=== PATIENT | male | born 1960 | race Caucasian/White ===

== ENCOUNTER 2017-04-14 13:44 | Emergency (ER) | payer OTHER ==
[~2017-04-14] VITALS: Ht 162.6 cm; Wt 61.7 kg
[2017-04-14 14:40] VITALS: BP 145/78
--- NOTE | 2017-04-14 14:49 | NUR ---
PT AMBULATED TO BED 12.
--- NOTE | 2017-04-14 14:50 | NUR ---
ASSUMED PATIENT CARE, CONCUR WITH TRIAGE. NURSING ASSESSMENT COMPLETED.
[2017-04-14] MEDS ORDERED: KETOROLAC 60 MG/2 ML VIAL IM ONE (15:00)
--- NOTE | 2017-04-14 15:45 | NUR ---
DISPO AND MEDICAL DECISION MAKING, DC HOME WITH INSTRUCTIONS AND PRESCRIPTIONS, UNDERSTOOD BY PATIENT WELL.
[2017-04-14 16:07] VITALS: BP 144/65
== END 2017-04-14 15:45 | disposition home or self-care (01) ==
LOC: MED 13:44
DX: M25.511 Pain in right shoulder (principal); M25.551 Pain in right hip
CPT/HCPCS: 73030; 73502; 96372; 99284; J1885; Q0092

== ENCOUNTER 2017-12-04 18:03 | Emergency (ER) | payer OTHER ==
[~2017-12-04] VITALS: Ht 162.6 cm; Wt 72.6 kg
[2017-12-04 18:11] VITALS: BP 150/104
--- NOTE | 2017-12-04 19:15 | NUR ---
56/M came in w c/o generalized headache and generalized weakness x 3 days. Denies CP/SOB, -stoke sx, N/V/D, visual distubances, falls/injuries. Pt amb with steady gait. Denies PMH
[2017-12-04] MEDS ORDERED: NACL 0.9% 1,000 ML IV ONE (19:20)
--- NOTE | 2017-12-04 20:45 | NUR ---
Patient discharged with v/s stable. Written and verbal after care instructions given and explained. Patient alert, oriented and verbalized understanding of instructions. Ambulatory with steady gait. All questions addressed prior to discharge. ID band removed. Patient advised to follow up with PMD. Rx of MOTRIN given. Patient educated on indication of medication including possible reaction and side effects. Opportunity to ask questions provided and answered. IV removed, catheter intact and site benign. Applied folded 4x4 gauze and tape to stop bleeding.
[2017-12-04 20:57] VITALS: BP 139/85
== END 2017-12-04 20:45 | disposition home or self-care (01) ==
LOC: MED 18:03
DX: R51 Headache (principal); R53.1 Weakness; F17.200 Nicotine dependence, unspecified, uncomplicated
CPT/HCPCS: 81002; 96360; 99283; 99284; J7030

== ENCOUNTER 2018-11-13 20:17 | Inpatient (IN) | payer OTHER ==
[~2018-11-13] VITALS: Ht 162.6 cm; Wt 61.2 kg
[2018-11-13 20:20] VITALS: BP 120/85
--- NOTE | 2018-11-13 20:23 | NUR ---
TO LOBBY A/W BED AMBULATORY
--- NOTE | 2018-11-13 21:19 | NUR ---
PT AMBULATED TO BED #1
--- NOTE | 2018-11-13 21:19 | NUR ---
57M C/O 9/10 RT FLANK PAIN X 1 DAY ASSOCIATED WITH DIARRHEA AND MILD N/V. STATES PAIN IS SHARP AND INCREASED WITH MOVEMENT. STATES DIARRHEA, NONBLOODY. WAS AT [facility] 3 WEEKS AGO WITH DX ACUTE PANCREATITIS.
[2018-11-14 00:03] LABS: BASOPHILS # (AUTO) 0.1 K/uL (0.00-0.22); BASOPHILS % (AUTO) 1.1 % (0.0-2.0); EOSINOPHILS # (AUTO) 0.2 K/uL (0-0.4); EOSINOPHILS % (AUTO) 2.3 % (0.0-4.0); HEMATOCRIT 32.5 % (36-52); HEMOGLOBIN 10.9 g/dL (12.0-18.0); LYMPHOCYTES # (AUTO) 1.2 K/uL (2.0-11.5); LYMPHOCYTES % (AUTO) 16.2 % (20.5-51.1); MEAN CORPUSCULAR HEMOGLOBIN 29 pg (27-31); MEAN CORPUSCULAR HGB CONC 34 g/dL (33-37); MEAN CORPUSCULAR VOLUME 87.6 fL (80-94); MONOCYTES # (AUTO) 0.6 K/uL (0.8-1.0); MONOCYTES % (AUTO) 8.4 % (1.7-9.3); NEUTROPHILS # (AUTO) 5.4 K/uL (1.8-7.7); PLATELET COUNT (AUTO) 361 K/uL (140-450); RED BLOOD CELL COUNT(AUTO) 3.71 MIL/uL (4.20-6.10); RED CELL DISTRIBUTION WIDTH 16.1 % (11.6-13.7); WHITE BLOOD COUNT (AUTO) 7.6 K/uL (4.8-10.8)
[2018-11-14 00:16] LABS: ANION GAP 12.1 (8-16); CARBON DIOXIDE 25.5 mmol/L (21-32); CREATININE 1.2 mg/dL (0.7-1.3); POTASSIUM 3.6 mmol/L (3.5-5.1)
[2018-11-14 00:22] LABS: ALBUMIN 2.8 g/dL (3.4-5.0); TOTAL BILIRUBIN 0.4 mg/dL (0.0-1.0)
--- NOTE | 2018-11-14 01:14 | NUR ---
PT SLEEPING IN BED, AROUSABLE BY VOICE. DENIES PAIN AT THIS TIME.
[2018-11-14] MEDS ORDERED: NACL 0.9% 1,000 ML IV ONE ×3 (01:50→03:20)
[2018-11-14] MEDS ORDERED: HYDR-5122 PO (04:23)
--- NOTE | 2018-11-14 04:50 | NUR ---
Patient will be admitted to care of Dr Shah. Admited to [facility]. Will go to room 111B. Belongings list completed. Report to ESTEVAN Bartlett.
[2018-11-14 05:00] VITALS: BP 122/68
--- NOTE | 2018-11-14 05:00 | NUR ---
RECEIVED PT FROM ER VIA WHEELCHAIR, REPORT GIVEN AT BED SIDE PT LUXEMBOURGISH SPEAKER AAOX4 AMBULATORY IV ON LEFT FA INFUSING WELL IV FLUIDS, IV SITE ON RT FA GAUGE #20 DENIES ANY PAIN AT THIS TIME , SKIN IS INTACT, MRSA SWAB NARES PROTOCOL TAKEN AND SENT TO LAB ,PT IS ORIENTED TO THE FLOOR CALL LIGHT WITHIN REACH, INITIAL ASSESSMENT DONE
[2018-11-14] MEDS ORDERED: ONDANSETRON 4 MG/2 ML VIAL IVP PRN (06:10)
[2018-11-14] MEDS ORDERED: ACETAMINOPHEN 325 MG TAB PO PRN ×2 (06:10→10:00)
[2018-11-14] MEDS ORDERED: MORPHINE SULFATE 4 MG/ML SYR IVP PRN (06:10)
--- NOTE | 2018-11-14 06:12 | NUR ---
DR MARTINEZ GIVE ORDERS AND ORDES TO FO;NILSA, PT NPO FOR NOW . PT WILL BE ENDORSED TO DAY SHIFT NURSE FOR CONTINUE OF CARE
[2018-11-14] MEDS: DEXT 5% /NACL 0.9% 1,000 ML IV SCH ×2 (06:28→16:10)
--- NOTE | 2018-11-14 07:00 | NUR ---
RECEIVED BEDSIDE REPORT FROM SUPERVISOR SLITTING AND SHIPPING NURSE. PATIENT ON MED SURGE FLOOR WITH STANDARD PRECAUTIONS IN PLACE. PATIENT AAOX3, COMMUNICATES APPROPRIATELY, SKIN INTACT, AMBULATORY AND CONTINENT. IV ON L FA 20G INFUSING D5 NS AT 100, IV PATENT AND INTACT. BED IN LOW POSITION, CALL LIGHT WITHIN REACH, SIDE RAILS X2 UP
[2018-11-14 08:00] VITALS: BP 114/71
[2018-11-14 08:20] LABS: BASOPHILS # (AUTO) 0.1 K/uL (0.00-0.22); EOSINOPHILS # (AUTO) 0.1 K/uL (0-0.4); HEMOGLOBIN 10.2 g/dL (12.0-18.0); LYMPHOCYTES # (AUTO) 0.8 K/uL (2.0-11.5); LYMPHOCYTES % (AUTO) 10.8 % (20.5-51.1); MEAN CORPUSCULAR HEMOGLOBIN 29 pg (27-31); MEAN CORPUSCULAR HGB CONC 33 g/dL (33-37); MEAN CORPUSCULAR VOLUME 88.4 fL (80-94); MONOCYTES # (AUTO) 0.7 K/uL (0.8-1.0); MONOCYTES % (AUTO) 9.6 % (1.7-9.3); NEUTROPHILS # (AUTO) 5.5 K/uL (1.8-7.7); NEUTROPHILS % (AUTO) 76.6 % (42.2-75.2); PLATELET COUNT (AUTO) 374 K/uL (140-450); RED BLOOD CELL COUNT(AUTO) 3.51 MIL/uL (4.20-6.10); RED CELL DISTRIBUTION WIDTH 16.2 % (11.6-13.7); WHITE BLOOD COUNT (AUTO) 7.2 K/uL (4.8-10.8)
[2018-11-14 08:36] LABS: ANION GAP 9.7 (8-16); CARBON DIOXIDE 27.7 mmol/L (21-32); CREATININE 1.3 mg/dL (0.7-1.3); POTASSIUM 4.4 mmol/L (3.5-5.1)
--- NOTE | 2018-11-14 08:36 | NUR ---
PATIENT HAS BEEN SCREENED AND CATEGORIZED MODERATE NUTRITION RISK. PATIENT WILL BE SEEN WITHIN 3-5 DAYS OF ADMISSION. 11/16/18KAN [address]
[2018-11-14 08:42] LABS: CHOL/HDL RATIO 1.7 (1-4.5)
--- NOTE | 2018-11-14 09:37 | NUR ---
PATIENT LYING COMFORTABLY IN BED WITH UNLABORED BREATHING ON ROOM AIR
[2018-11-14] MEDS ORDERED: MAG SULF 2000 MG/WATER PREMIX 50 ML IV PRN (10:00)
[2018-11-14] MEDS ORDERED: cloNIDine 0.1 MG TAB PO PRN (10:00)
[2018-11-14] MEDS ORDERED: POTASSIUM CHLORIDE 40 MEQ, LIDOCAINE 1% 25 MG in NACL 0.9% 250 ML IV PRN (10:00)
[2018-11-14] MEDS ORDERED: POTASSIUM CHLORIDE 10 MEQ TABER PO PRN (10:00)
[2018-11-14] MEDS ORDERED: HYDROcodone/APAP 5/325 MG 1 TAB TAB PO PRN ×2 (10:00)
[2018-11-14] MEDS ORDERED: LORazepam 2 MG/ML VIAL IVP PRN (10:00)
[2018-11-14] MEDS ORDERED: ACETAMINOPHEN 650 MG SUPP RC PRN (10:00)
[2018-11-14] MEDS ORDERED: ALBUTEROL 0.083% 2.5 MG/3 ML NEBU INH PRN (10:00)
[2018-11-14] MEDS ORDERED: ALUMINUM HYD/MAG/SIMETHICONE 30 ML UDC PO PRN (10:00)
[2018-11-14] MEDS ORDERED: ZOLPIDEM 5 MG TAB PO PRN (10:00)
[2018-11-14] MEDS ORDERED: DOCUSATE SODIUM 250 MG GELCAP PO PRN (10:00)
[2018-11-14] MEDS ORDERED: MAGNESIUM OXIDE 400 MG TAB PO PRN (10:00)
[2018-11-14] MEDS ORDERED: diphenhydrAMINE 50 MG/ML VIAL IVP PRN (10:00)
[2018-11-14] MEDS ORDERED: SODIUM PHOSPHATE 118 ML ENEM RC PRN (10:00)
[2018-11-14] MEDS ORDERED: IPRATROPIUM 0.02% 0.5 MG/2.5 ML NEBU INH PRN (10:00)
[2018-11-14] MEDS ORDERED: BISACODYL 10 MG SUPP RC PRN (10:00)
--- NOTE | 2018-11-14 11:27 | NUR ---
PATIENT AMBULATED TO RESTROOM WITH NO ASSISTANCE, ON ROOM AIR, NO DISTRESS NOTED.
--- NOTE | 2018-11-14 13:16 | NUR ---
PATIENT AMBULATING AROUND UNIT
[2018-11-14] MEDS: MORPHINE SULFATE 2 MG/ML SYR IVP PRN (15:44)
--- NOTE | 2018-11-14 15:49 | NUR ---
ADMINISTERED PAIN MEDICINE FOR 10/10 ABDOMINAL PAIN ORDERED
[2018-11-14 16:00] VITALS: BP 145/111
--- NOTE | 2018-11-14 17:05 | NUR ---
PATIENT SITTING IN BED COMFORTABLY WATCHING TV, NO COMPLAINTS AT THIS TIME
--- NOTE | 2018-11-14 19:26 | NUR ---
GAVE BEDSIDE REPORT TO CUSTOMER SERVICE ASSISTANT NURSE. PATIENT ENDORSED IN STABLE CONDITION
--- NOTE | 2018-11-14 19:27 | NUR ---
RECEIVED PT FROM MIGUELINA PT JAPANESE SPEAKER AAOX4 AMBULATORY VOIDING WELL, IV ON LEFT FA INFUSING WELL, DENIES ANY PAIN AT THIS TIME INITIAL ASSESSMENT DONE
--- NOTE | 2018-11-14 21:17 | NUR ---
RECEIVED PATIENT ON ROOM AIR, PULSE OX SAT 100%. PATIENT DENIES ANY SHORTNESS OF BREATH. PRN BREATHING TREATMENT NOT INDICATED OR ADMINISTERED AT THIS TIME. NO ACUTE RESPIRATORY DISTRESS NOTED. WILL CONTINUE TO MONITOR.
--- NOTE | 2018-11-14 22:00 | NUR ---
PT ON CLOSE MONITORING DENIES ANY PAIN , VOIDING WELL TOLERATED WELL LIQUID DIET IV ON LEFT FA INFUSING WELL
[2018-11-15] VITALS: BP 140/84
[2018-11-15] MEDS: DEXT 5% /NACL 0.9% 1,000 ML IV SCH (00:48)
--- NOTE | 2018-11-15 00:50 | NUR ---
PT SLEEPING WELL NOT SIGNS OF DISTRESS NOTED
--- NOTE | 2018-11-15 04:00 | NUR ---
PT AMBULATES TO THE RESTROOM VOIDING WELL DENIES ANY PAIN
--- NOTE | 2018-11-15 06:11 | NUR ---
PT WILL BE ENDORSED TO DAY SHIFT NURSED FOR CONTINUE OF CARE
--- NOTE | 2018-11-15 07:10 | NUR ---
PATIENT ALERT AND ORIENTED, MACEDONIAN SPEAKING, UNDERSTANDS LITTLE OCCITAN. ABLE TO VERBALIZE PLAN OF CARE. NO ACUTE DISTRESS NOTED. MILD DISCOMFORT RLQ, WILL MEDICATE ORDERED.
[2018-11-15 08:00] VITALS: BP 140/77
--- NOTE | 2018-11-15 08:44 | NUR ---
CONTACTED PATIENT'S PCP DR. LEENA RIVERA'S OFFICE AT [phone] FOR POST DISCHARGE APPOINTMENT. OFFICE IS STILL CLOSED, WILL FOLLOW UP.
[2018-11-15] MEDS: MORPHINE SULFATE 2 MG/ML SYR IVP PRN (09:52)
--- NOTE | 2018-11-15 10:13 | NUR ---
CONTACTED PCP'S CLINIC AGAIN, ABLE TO SPEAK TO NATI. SHE PROVIDED ME A POST DISCHARGE APPOINTMENT ON NOV 22, 2018 AT 1430. COPY OF APPOINTMENT PROVIDED TO THE PATIENT.
--- NOTE | 2018-11-15 13:30 | NUR ---
PATIENT TO BE DISCHARGED HOME. SPOUSE HERE TO TAKE PATIENT HOME. HOME MEDICATIONS GIVEN BACK TO PATIENT FROM PHARMACY. IV REMOVED, CANULA INTACT. ALERT AND AMBULATORY. DENIES PAIN/DISCOMFORT AT THIS TIME. DISCHARGE INSTRUCTIONS GIVEN WITH FOLLOW UP TEACHING, VERBALIZED UNDERSTANDING. WALKED WITH PATIENT TO FRONT LOBBY.
[2018-11-16] MEDS ORDERED: THIAMINE 100 MG TAB PO SCH (11:00)
[2018-11-17] MEDS ORDERED: THIAMINE 100 MG TAB PO SCH (09:00)
== END 2018-11-15 13:23 | disposition home or self-care (01) | DRG 282 ==
LOC: MED 20:17 → MTU 11-14 04:10
PROVIDERS: ADMIT Internal Medicine Pulmonary Disease; ATTEND Internal Medicine Pulmonary Disease
DX: K85.20 Alcohol induced acute pancreatitis without necrosis or infection (principal); E44.1 Mild protein-calorie malnutrition; E87.1 Hypo-osmolality and hyponatremia; F17.210 Nicotine dependence, cigarettes, uncomplicated; F10.20 Alcohol dependence, uncomplicated; Z68.23 Body mass index [BMI] 23.0-23.9, adult
CPT/HCPCS: 36415; 80048; 80053; 83690; 85025; 87081; 96360; 99285; J2270; J7042

== ENCOUNTER 2019-02-27 09:55 | Emergency (ER) | payer OTHER ==
[~2019-02-27] VITALS: Ht 162.6 cm; Wt 59.0 kg
[~2019-02-27 09:55] MED LIST: HYDR-5122 PO
[2019-02-27 10:15] VITALS: BP 138/85
--- NOTE | 2019-02-27 10:24 | NUR ---
PATIENT AMBULATED TO BED 1.
--- NOTE | 2019-02-27 10:36 | NUR ---
PT PRESENTS TO ED WITH C/O L FOREARM AND L HAND DISCOMFORT X 2 WEEKS. PT DENIES PAIN AT THIS TIME. PT DENIES INJURY TO L FOREARM AND HAND. PT STATES "IT FEELS LIKE IT IS SLEEPING". +CSM. PT SKIN IS PINK, WARM, AND DRY. PT DENIES N/V/D, CP AND SOB AT THIS TIME. VSS. PT POSITIONED FOR COMFORT, HOB ELEVATED, BED RAIL UP X 1. ER MD TO SEE PT. NKA HX: DENIES RX: DENIES
--- NOTE | 2019-02-27 10:46 | NUR ---
PT TO CT VIA WHEELCHAIR.
--- NOTE | 2019-02-27 10:57 | NUR ---
PT RETURNED FROM CT VIA WHEELCHAIR
--- NOTE | 2019-02-27 11:07 | NUR ---
Patient being evaluated by DR. PAYTON at bedside.
--- NOTE | 2019-02-27 11:16 | NUR ---
LAB AT BEDSIDE.
[2019-02-27 11:34] LABS: BASOPHILS # (AUTO) 0.1 K/uL (0.00-0.22); BASOPHILS % (AUTO) 0.9 % (0.0-2.0); EOSINOPHILS # (AUTO) 0.1 K/uL (0-0.4); EOSINOPHILS % (AUTO) 1.3 % (0.0-4.0); HEMATOCRIT 34.2 % (36-52); HEMOGLOBIN 11.1 g/dL (12.0-18.0); LYMPHOCYTES # (AUTO) 1.4 K/uL (2.0-11.5); LYMPHOCYTES % (AUTO) 20.6 % (20.5-51.1); MEAN CORPUSCULAR HEMOGLOBIN 27 pg (27-31); MEAN CORPUSCULAR HGB CONC 33 g/dL (33-37); MEAN CORPUSCULAR VOLUME 82.4 fL (80-94); MONOCYTES # (AUTO) 0.7 K/uL (0.8-1.0); MONOCYTES % (AUTO) 10.2 % (1.7-9.3); NEUTROPHILS # (AUTO) 4.6 K/uL (1.8-7.7); PLATELET COUNT (AUTO) 382 K/uL (140-450); RED BLOOD CELL COUNT(AUTO) 4.14 MIL/uL (4.20-6.10); RED CELL DISTRIBUTION WIDTH 17.9 % (11.6-13.7); WHITE BLOOD COUNT (AUTO) 6.9 K/uL (4.8-10.8)
[2019-02-27 11:44] LABS: ANION GAP 15.2 (8-16); CARBON DIOXIDE 24.9 mmol/L (21-32); CREATININE 1.2 mg/dL (0.7-1.3); POTASSIUM 4.1 mmol/L (3.5-5.1)
--- NOTE | 2019-02-27 11:48 | NUR ---
PT AMBULATED TO THE RESTROOM WITH A STEADY GAIT.
[2019-02-27 11:50] LABS: ALBUMIN 3.2 g/dL (3.4-5.0); TOTAL BILIRUBIN 0.3 mg/dL (0.0-1.0)
--- NOTE | 2019-02-27 12:03 | NUR ---
Patient discharged with v/s stable. Written and verbal after care instructions given and explained. Patient alert, oriented and verbalized understanding of instructions. Ambulatory with steady gait. All questions addressed prior to discharge. ID band removed. Patient advised to follow up with PMD. Rx of BENADRYL given. Patient educated on indication of medication including possible reaction and side effects. Opportunity to ask questions provided and answered.
[2019-02-27 12:04] VITALS: BP 117/77
[2019-02-27 12:16] LABS: CKMB RELATIVE INDEX 0.7 (0.0-2.5); CREATINE KINASE MB 3.5 ng/mL (0-3.6)
== END 2019-02-27 12:03 | disposition home or self-care (01) ==
LOC: MED 09:55
DX: R53.1 Weakness (principal); R03.0 Elevated blood-pressure reading, without diagnosis of hypertension; F17.210 Nicotine dependence, cigarettes, uncomplicated; Z79.899 Other long term (current) drug therapy
CPT/HCPCS: 36415; 70450; 80053; 82550; 82553; 85025; 99284

== ENCOUNTER 2019-12-25 10:35 | Observation (INO) | payer OTHER, SELFPAY ==
[~2019-12-25] VITALS: Ht 167.6 cm; Wt 84.8 kg
[~2019-12-25 10:35] MED LIST changes: +CIPR500T4 PO; +METR250T2 PO
[2019-12-25 10:40] VITALS: BP 136/80
--- NOTE | 2019-12-25 10:54 | NUR ---
PQATIENT AMBULATED TO BED 4.
--- NOTE | 2019-12-25 10:55 | NUR ---
pt hook to manager cardiac cath , o2 sat at 99 , hr 84 .vs stable.
--- NOTE | 2019-12-25 10:56 | NUR ---
C/O INTERMITENT LEFT CHEST PAIN X 1 MONTH. VOMITING X1 THIS AM.PT AOX4 , AFIBRILE , AMBULATORY WITH STEADY GAIT, DENIES SOB AND DIZZINESS , PINK PALPEBRAL CONJUNCTIVA , ANICTERIC SCLERA , SCE , FLAT SOFT ABDOMEN. MED HX: HERNIA REPAIR
--- NOTE | 2019-12-25 10:59 | NUR ---
emt ayala wells ekg
--- NOTE | 2019-12-25 11:20 | NUR ---
dr myers at bedside evaluating pt.
[2019-12-25] MEDS ORDERED: NITROGLYCERIN 0.4 MG TAB SL ONE (11:25)
[2019-12-25] MEDS ORDERED: ASPIRIN 81 MG TAB.CHEW PO ONE (11:25)
--- NOTE | 2019-12-25 11:43 | NUR ---
XRAY AT BEDSIDE
--- NOTE | 2019-12-25 11:44 | NUR ---
LABS AT BEDSIDE
[2019-12-25 12:06] LABS: BASOPHILS % (AUTO) 1.2 % (0.0-2.0); EOSINOPHILS % (AUTO) 0.7 % (0.0-4.0); HEMATOCRIT 28.5 % (36-52); HEMOGLOBIN 9.6 g/dL (12.0-18.0); LYMPHOCYTES # (AUTO) 0.9 K/uL (2.0-11.5); LYMPHOCYTES % (AUTO) 22.1 % (20.5-51.1); MEAN CORPUSCULAR HEMOGLOBIN 29 pg (27-31); MEAN CORPUSCULAR HGB CONC 34 g/dL (33-37); MONOCYTES # (AUTO) 0.4 K/uL (0.8-1.0); MONOCYTES % (AUTO) 11.1 % (1.7-9.3); NEUTROPHILS # (AUTO) 2.6 K/uL (1.8-7.7); NEUTROPHILS % (AUTO) 64.9 % (42.2-75.2); PLATELET COUNT (AUTO) 309 K/uL (140-450); RED BLOOD CELL COUNT(AUTO) 3.27 MIL/uL (4.20-6.10); RED CELL DISTRIBUTION WIDTH 17.6 % (11.6-13.7)
[2019-12-25 12:11] LABS: ALBUMIN 2.8 g/dL (3.4-5.0); ANION GAP 15.4 (8-16); CARBON DIOXIDE 21.9 mmol/L (21-32); CREATININE 1.2 mg/dL (0.6-1.3); POTASSIUM 3.3 mmol/L (3.5-5.1); TOTAL BILIRUBIN 0.3 mg/dL (0.0-1.0)
[2019-12-25] MEDS ORDERED: ACETAMINOPHEN 325 MG TAB PO PRN (13:40)
[2019-12-25] MEDS ORDERED: MORPHINE SULFATE 4 MG/ML SYR IVP PRN (13:40)
[2019-12-25] MEDS ORDERED: ONDANSETRON 4 MG/2 ML VIAL IVP PRN (13:40)
--- NOTE | 2019-12-25 16:50 | NUR ---
pt comfortable in bed with stable vss.
[2019-12-25 18:45] VITALS: BP 140/79
--- NOTE | 2019-12-25 18:45 | NUR ---
RECEIVED REPORT FROM ER NURSE FOR CONTINUITY OF CARE, PT IS STABLE, NO SIGNS OF DISTRESS NOTED, RESPIRATIONS ARE EVEN AND UNLABORED ON ROOM AIR, NO IV ACCESS PER ER NURSE THERE WAS NO IV ORDER. PT AMBULATED INTO HIS BED, ORIENTED PT TO THE ROOM, OBTAIN MRSA SAMPLE, UPDATED WHITEBOARD, INTRODUCE SELF, BED IN LOW POSITION, SAFETY MEASURES IN PLACE
--- NOTE | 2019-12-25 18:45 | NUR ---
Patient will be admitted to care of Dr Sosa. Admited to [facility]. Will go to room 106 A. Belongings list completed. Report to giancarlo zepeda.
--- NOTE | 2019-12-25 19:19 | NUR ---
ENDORSE PT TO NIGHT NURSE FOR CONTINUITY OF CARE, PT IS STABLE.
--- NOTE | 2019-12-25 19:20 | NUR ---
RECEIVED BEDSIDE ENDORSEMENT FROM ESTEVAN HOLT. AAOX4, NO SOB, NO C/O PAIN, NO IV SITE NOTED, SKIN INTACT, MRSA DONE, V/S TAKEN, SAFETY MEASURES IN PLACE, LOW BED IN PLACE, PLAN OF CARE DISCUSSED, CALL LIGHT WITHIN REACH.
[2019-12-25 20:00] VITALS: BP 140/87
[2019-12-25] MEDS: HYDROcodone/APAP 5/325 MG 1 TAB TAB PO PRN (22:20)
--- NOTE | 2019-12-25 22:20 | NUR ---
C/O INTERMITTENT CHEST PAIN, 5/10, REPOSITIONED, NORCO PO GIVEN FOR MODERATE PAIN ORDERED, TOLERATED WELL, MED EDUCATION PROVIDED. WILL MONITOR CLOSELY.
--- NOTE | 2019-12-25 23:20 | NUR ---
PATIENT IS RESTING, DENIES ANY PAIN. CALL LIGHT WITHIN REACH.
[2019-12-26] VITALS: BP 139/87
--- NOTE | 2019-12-26 02:00 | NUR ---
SLEEPING, RESPIRATION EVEN AND UNLABORED. NO DISTRESS.
[2019-12-26 04:00] VITALS: BP 143/87
--- NOTE | 2019-12-26 04:30 | NUR ---
V/S TAKEN AND RECORDED, DENIES PAIN, KEPT COMFORTABLE.
[2019-12-26 06:26] LABS: BASOPHILS # (AUTO) 0.1 K/uL (0.00-0.22); BASOPHILS % (AUTO) 1.2 % (0.0-2.0); EOSINOPHILS # (AUTO) 0.1 K/uL (0-0.4); EOSINOPHILS % (AUTO) 2.9 % (0.0-4.0); HEMATOCRIT 31.9 % (36-52); HEMOGLOBIN 10.6 g/dL (12.0-18.0); LYMPHOCYTES # (AUTO) 0.9 K/uL (2.0-11.5); LYMPHOCYTES % (AUTO) 20.1 % (20.5-51.1); MEAN CORPUSCULAR HEMOGLOBIN 29 pg (27-31); MEAN CORPUSCULAR HGB CONC 33 g/dL (33-37); MEAN CORPUSCULAR VOLUME 88.4 fL (80-94); MONOCYTES # (AUTO) 0.5 K/uL (0.8-1.0); MONOCYTES % (AUTO) 12.2 % (1.7-9.3); NEUTROPHILS # (AUTO) 2.8 K/uL (1.8-7.7); NEUTROPHILS % (AUTO) 63.6 % (42.2-75.2); PLATELET COUNT (AUTO) 306 K/uL (140-450); RED BLOOD CELL COUNT(AUTO) 3.61 MIL/uL (4.20-6.10); RED CELL DISTRIBUTION WIDTH 18.5 % (11.6-13.7); WHITE BLOOD COUNT (AUTO) 4.5 K/uL (4.8-10.8)
[2019-12-26 06:53] LABS: ALBUMIN 2.9 g/dL (3.4-5.0); ANION GAP 12.3 (8-16); CARBON DIOXIDE 26.4 mmol/L (21-32); CREATININE 1.3 mg/dL (0.6-1.3); POTASSIUM 3.7 mmol/L (3.5-5.1); TOTAL BILIRUBIN 0.5 mg/dL (0.0-1.0)
--- NOTE | 2019-12-26 06:59 | NUR ---
PATIENT IS IN STABLE CONDITION. BEDSIDE ENDORSEMENT GIVEN TO AM SHIFT RN FOR CONTINUITY OF CARE.
--- NOTE | 2019-12-26 07:00 | NUR ---
RECEIVED REPORT FROM FRANCIS, ESTEVAN RUDOLPH. PT CAME FROM HOME. SAO TOMEAN/SLOVAK SPEAKING. CO: CHEST PAIN [id number] ON AND OFF. DX: R/O ACS. NO PMHX. NKA. A&O X4. PT IS ON A CARDIAC DIET. PT IS AMBULATORY. SKIN IS INTACT. PLAN: STRICT I&O AND OBSERVATION.
[2019-12-26 08:00] VITALS: BP 146/87
[2019-12-26] MEDS: HYDROcodone/APAP 5/325 MG 1 TAB TAB PO PRN (08:16)
--- NOTE | 2019-12-26 08:30 | NUR ---
GAVE PAIN MEDS GIVEN, PT COMPLAINING OF CHEST PAIN. VS STABLE, HR WITHIN NORMAL RANGE.
[2019-12-26] MEDS ORDERED: ASPIRIN 81 MG TAB.CHEW PO SCH (09:00)
--- NOTE | 2019-12-26 09:00 | NUR ---
CHECKED ON PT, NO COMPLAINTS OF PAIN. MEDICATION TREATMENT WAS SUCCESSFUL.
--- NOTE | 2019-12-26 09:05 | NUR ---
DISCHARGE PLANNING: THIS IS A 59 Y/O MALE PATIENT FROM HOME, WHO CAME IN DUE TO CHEST PAIN. NO SIGNIFICANT PAST MEDICAL HISTORY. INITIAL DIAGNOSIS OF CHEST PAIN, R.O ACS. CURRENT LABS INCLUDE WBC 4.5, H/H 10.6/31.9, NA/K 137/3.7, BUN/CREA 8/1.3, TROP <0.017, ALB 2.9. CXR POSSIBLE LEFT UPPER LOBE GRANULOMA (5 MM). NO CONSULTS YET AT THIS TIME. DC PLAN BACK TO HOME ONCE STABLE. Addendum: 12/26/19 at 1243 by Celine Paula CM DC SEGREGATOR: RECEIVED ORDER FOR GI FOLLOW UP. FAXED ORDER TO [facility] [place] [phone] FAX# [phone].
--- NOTE | 2019-12-26 09:16 | NUR ---
PATIENT HAS BEEN SCREENED AND CATEGORIZED MODERATE NUTRITION RISK. PATIENT WILL BE SEEN WITHIN 3-5 DAYS OF ADMISSION. 12/28/19 12/30/[address]
--- NOTE | 2019-12-26 11:12 | NUR ---
PLASTIC BATTERY ASSEMBLER NOTE: Patient's Orientation Person Situation Place Time Information Provided By PATIENT Comments SW COMPLETED ASSESSMENT TELEPHONICALLY USING [place]ISH INTERPRETOR DASHA [id number]. SW VERIFIED DEMOGRAPHICS WITH PATIENT. PATIENT PROVIDED DIFFERENT PHONE NUMBER FOR RIKI SANFORD - [phone]. Laboratory Manager, Realtionship and Phone Number RIKI SANFORD [phone] Healthcare Power of Floor Coverings Salesperson No Does Patient Have a POLST No Identifying Problems No Social Work Triggers Is A Social Work Consult Needed No Mandate Report Filed No Explanation Of Identifying Problems PATIENT IS A 59-YEAR-OLD MALE ADMITTED FOR CHEST PAIN. PATIENT HAS NO SIGNIFICANT PMHX. PATIENT REPORTED NO HISTORY OF SUBSTANCE ABUSE OR MENTAL HEALTH. Admitted From Home Pre-Admission Level Of Functioning Status Independent/Ambulatory Prior Resources/Services Used In Last 12 Months No Prior Resources Used Prior DME No Prior DME Used Living Situation Lives With Family House Patient Had Caregiver No Home Support No Caregiver Issues Financial Issues No Known Financial Issue Referral To The Financial Counselor Needed No Factors/Needs No D/C Needs Identified Pt/Rep Participated In Discharge Plan Yes Patient/Family Agress With Discharge Plan Yes Discharge Plan Comments TENTATIVE DISCHARGE PLAN IS FOR PATIENT TO RETURN HOME. DC Plan Status Initiated
[2019-12-26 12:00] VITALS: BP 134/84
--- NOTE | 2019-12-26 12:00 | NUR ---
VS STABLE. NO SIGNS OF DISTRESS.
--- NOTE | 2019-12-26 14:00 | NUR ---
RECEIVED DC ORDER. EXPLAINED TO PT THAT HE WILL BE GOING HOME. MEDICATIONS WILL BE AT PREFERRED PHARMACY.
[2019-12-26] MEDS ORDERED: ONDA4TAB PO (14:11)
[2019-12-26] MEDS ORDERED: PANT40EC PO (14:11)
[2019-12-26 14:17] VITALS: BP 134/84
--- NOTE | 2019-12-26 14:30 | NUR ---
GAVE DC INSTRUCTIONS. PT SIGNED ALL DC DOCUMENTS. WRIST BAND REMOVED. ESCORTED PT TO THE LOBBY.
== END 2019-12-26 14:45 | disposition home or self-care (01) ==
LOC: MED 10:35 → MTU 13:39
PROVIDERS: ADMIT Hospitalist; ATTEND Hospitalist
DX: R07.89 Other chest pain (principal); D64.9 Anemia, unspecified; E87.1 Hypo-osmolality and hyponatremia; E87.6 Hypokalemia; N28.9 Disorder of kidney and ureter, unspecified; F17.200 Nicotine dependence, unspecified, uncomplicated
CPT/HCPCS: 36415; 71045; 80053; 83690; 83880; 84484; 85025; 87081; 93005; 99285; G0378; Q0092

== ENCOUNTER 2020-06-03 03:05 | Emergency (ER) | payer OTHER, SELFPAY ==
[~2020-06-03] VITALS: Ht 160 cm; Wt 55.8 kg
[~2020-06-03 03:05] MED LIST changes: -CIPR500T4 PO; -HYDR-5122 PO; -METR250T2 PO; +ONDA4TAB PO; +PANT40EC PO
[2020-06-03 03:08] VITALS: BP 146/77
[2020-06-03] MEDS ORDERED: NACL 0.9% 1,000 ML IV ONE ×2 (03:30→03:45)
[2020-06-03] MEDS ORDERED: METOCLOPRAMIDE 10 MG/2 ML INJ VIAL IVP ONE ×2 (03:30→03:45)
[2020-06-03] MEDS ORDERED: KETOROLAC 15 MG/ML VIAL IVP ONE ×2 (03:30→03:45)
[2020-06-03] MEDS ORDERED: KETOROLAC 15 MG/ML VIAL ONE (06:03)
[2020-06-03] MEDS ORDERED: ACET-9800 PO (06:12)
[2020-06-03 06:23] VITALS: BP 146/77
== END 2020-06-03 06:25 | disposition home or self-care (01) ==
LOC: MED 03:05
DX: R51.9 Headache, unspecified (principal); M54.2 Cervicalgia; Z79.899 Other long term (current) drug therapy
CPT/HCPCS: 70450; 96361; 96374; 96375; 99284; J1885; J2765; J7030

== ENCOUNTER 2020-09-22 11:00 | Inpatient (IN) | payer OTHER, SELFPAY ==
[~2020-09-22] VITALS: Ht 162.6 cm; Wt 55.8 kg
[2020-09-22] VITALS (7 sets, daily range): BP systolic 96–167; BP diastolic 61–92
[~2020-09-22 11:00] MED LIST changes: +ACET-9800 PO
[2020-09-22 11:58] LABS: BASOPHILS % (AUTO) 0.3 % (0.0-2.0); EOSINOPHILS % (AUTO) 0.1 % (0.0-4.0); LYMPHOCYTES # (AUTO) 0.8 K/uL (2.0-11.5); LYMPHOCYTES % (AUTO) 7.7 % (20.5-51.1); MEAN CORPUSCULAR HEMOGLOBIN 28 pg (27-31); MEAN CORPUSCULAR HGB CONC 33 g/dL (33-37); MEAN CORPUSCULAR VOLUME 85.5 fL (80-94); MONOCYTES # (AUTO) 1.2 K/uL (0.8-1.0); MONOCYTES % (AUTO) 11.7 % (1.7-9.3); NEUTROPHILS # (AUTO) 7.9 K/uL (1.8-7.7); NEUTROPHILS % (AUTO) 80.2 % (42.2-75.2); PLATELET COUNT (AUTO) 387 K/uL (140-450); RED CELL DISTRIBUTION WIDTH 18.1 % (11.6-13.7); WHITE BLOOD COUNT (AUTO) 9.8 K/uL (4.8-10.8)
[2020-09-22 12:01] LABS: HEMATOCRIT 19.7 % (36-52); HEMOGLOBIN 6.4 g/dL (12.0-18.0)
[2020-09-22 12:08] LABS: BILIRUBIN,URINE NEGATIVE (NEGATIVE); BLOOD, URINE 1+ (NEGATIVE); COLOR,URINE YELLOW (YELLOW); LEUKOCYTE ESTERASE ,URINE TRACE (NEGATIVE); NITRITE, URINE NEGATIVE (NEGATIVE); PH,URINE 6.5 (5.0-9.0); UGLUCOSE NEGATIVE (NEGATIVE)
[2020-09-22 12:19] LABS: ALBUMIN 2.6 g/dL (3.4-5.0); ANION GAP 13.7 (8-16); APPEARANCE,URINE HAZY (CLEAR); CARBON DIOXIDE 25.3 mmol/L (21-32); CREATININE 1.5 mg/dL (0.6-1.3); TOTAL BILIRUBIN 0.2 mg/dL (0.0-1.0)
[2020-09-22] MEDS ORDERED: MORPHINE SULFATE 2 MG/ML SYR IVP PRN (13:25)
[2020-09-22] MEDS ORDERED: ONDANSETRON 4 MG/2 ML VIAL IVP PRN (13:25)
[2020-09-22] MEDS ORDERED: PANTOPRAZOLE 80 MG in NACL 0.9% 100 ML IVP SCH (13:25)
[2020-09-22] MEDS ORDERED: LORazepam 2 MG/ML VIAL IVP PRN (13:25)
[2020-09-22] MEDS ORDERED: fentaNYL citrate 0.05 MG/ML VIAL IVP ONE (13:25)
[2020-09-22] MEDS ORDERED: PANTOPRAZOLE 40 MG INJ VIAL IVP ONE (13:25)
[2020-09-22] MEDS: PANTOPRAZOLE 80 MG in NACL 0.9% 100 ML IVP SCH ×2 (13:51→23:09)
[2020-09-22] MEDS: NACL 0.9% 1,000 ML IV SCH ×2 (13:53→23:12)
[2020-09-22 13:59] LABS: HEMOGLOBIN 6.1 g/dL (12.0-18.0)
[2020-09-22 14:00] LABS: HEMATOCRIT 18.2 % (36-52)
[2020-09-22] MEDS ORDERED: LORazepam 2 MG/ML VIAL IM/IVP PRN (15:15)
[2020-09-22] MEDS ORDERED: MIDAZOLAM 2 MG/2 ML VIAL ONE ×4 (15:25→16:17)
[2020-09-22] MEDS ORDERED: fentaNYL citrate 0.05 MG/ML VIAL ONE ×3 (15:25→16:17)
[2020-09-22] MEDS ORDERED: LACTULOSE 20 GM/30 ML UDC PO SCH (17:00)
[2020-09-22] MEDS ORDERED: EPINEPHrine PFS 0.1 MG/ML SYR IVP ONE (17:33)
[2020-09-22] MEDS ORDERED: GLUCAGON 1 MG VIAL ONE (17:33)
[2020-09-22] MEDS ORDERED: diphenhydrAMINE 50 MG/ML VIAL ONE (17:33)
[2020-09-22] MEDS ORDERED: ERYTHROMYCIN ETHYLSUCCINATE SUSP 200 MG/5 ML UDC PO SCH (18:00)
[2020-09-22] MEDS: LACTULOSE 20 GM/30 ML UDC PO SCH ×2 (18:33→21:00)
[2020-09-22] MEDS: SENNA 8.6 MG TAB PO SCH (18:34)
[2020-09-22] MEDS: SUCRALFATE 1 GM TAB PO SCH ×3 (18:46→21:46)
[2020-09-22] MEDS ORDERED: EPINEPHrine 1 MG/ML AMP MC SCH (20:35)
[2020-09-22] MEDS ORDERED: diphenhydrAMINE 50 MG/ML VIAL IVP SCH (20:35)
[2020-09-22] MEDS ORDERED: GLUCAGON 1 MG VIAL IVP SCH (20:35)
[2020-09-22] MEDS ORDERED: MIDAZOLAM 2 MG/2 ML VIAL IVP SCH (20:35)
[2020-09-22] MEDS ORDERED: fentaNYL citrate 0.05 MG/ML VIAL IVP SCH (20:35)
[2020-09-22] MEDS ORDERED: SUPREP BOWEL PREP KIT 354 ML SOLN.RECON PO SCH (21:00)
[2020-09-22] MEDS ORDERED: SODIUM FERRIC GLUCONATE 12.5 MG/ML AMP IV ONE (21:17)
[2020-09-22] MEDS: SODIUM FERRIC GLUCONATE 125 MG in NACL 0.9% 100 ML IV SCH (21:41)
[2020-09-22] MEDS ORDERED: KCL 20 MEQ/WATER INJ PREMIX 200 ML IV SCH (23:25)
[2020-09-22] MEDS ORDERED: KCL 20 MEQ/WATER INJ PREMIX 200 ML IV ONE (23:55)
[2020-09-23] VITALS (14 sets, daily range): BP systolic 128–168; BP diastolic 64–83
[2020-09-23] MEDS ORDERED: SODIUM FERRIC GLUCONATE 12.5 MG/ML AMP IV ONE (04:37)
[2020-09-23] MEDS: SODIUM FERRIC GLUCONATE 125 MG in NACL 0.9% 100 ML IV SCH ×3 (04:49→23:59)
[2020-09-23 05:06] LABS: BASOPHILS # (AUTO) 0.1 K/uL (0.00-0.22); BASOPHILS % (AUTO) 1.8 % (0.0-2.0); EOSINOPHILS % (AUTO) 0.4 % (0.0-4.0); HEMATOCRIT 27.4 % (36-52); LYMPHOCYTES # (AUTO) 0.9 K/uL (2.0-11.5); LYMPHOCYTES % (AUTO) 11.9 % (20.5-51.1); MEAN CORPUSCULAR HEMOGLOBIN 26 pg (27-31); MEAN CORPUSCULAR HGB CONC 33 g/dL (33-37); MEAN CORPUSCULAR VOLUME 79.2 fL (80-94); MONOCYTES # (AUTO) 0.8 K/uL (0.8-1.0); MONOCYTES % (AUTO) 11.7 % (1.7-9.3); NEUTROPHILS # (AUTO) 5.4 K/uL (1.8-7.7); NEUTROPHILS % (AUTO) 74.2 % (42.2-75.2); PLATELET COUNT (AUTO) 336 K/uL (140-450); RED BLOOD CELL COUNT(AUTO) 3.46 MIL/uL (4.20-6.10); RED CELL DISTRIBUTION WIDTH 22.2 % (11.6-13.7); WHITE BLOOD COUNT (AUTO) 7.3 K/uL (4.8-10.8)
[2020-09-23 05:15] LABS: ALBUMIN 2.3 g/dL (3.4-5.0); ANION GAP 9.1 (8-16); CARBON DIOXIDE 27.6 mmol/L (21-32); CREATININE 1.3 mg/dL (0.6-1.3); MAGNESIUM 1.6 mg/dL (1.8-2.4); POTASSIUM 3.7 mmol/L (3.5-5.1); TOTAL BILIRUBIN 0.5 mg/dL (0.0-1.0)
[2020-09-23] MEDS: MULTIVITAMIN-12 10 ML, THIAMINE 100 MG, FOLIC ACID 1 MG, MAGNESIUM SULFATE 50% 2,000 MG... IV SCH ×10 (06:38→16:00)
[2020-09-23] MEDS: LACTULOSE 20 GM/30 ML UDC PO SCH ×4 (08:57→20:59)
[2020-09-23] MEDS: SUCRALFATE 1 GM TAB PO SCH ×4 (08:58→20:59)
[2020-09-23] MEDS: SENNA 8.6 MG TAB PO SCH ×3 (08:58→16:42)
[2020-09-23] MEDS: NACL 0.9% 1,000 ML IV SCH (08:58)
[2020-09-23] MEDS: PANTOPRAZOLE 80 MG in NACL 0.9% 100 ML IVP SCH (09:25)
[2020-09-23] MEDS: ERYTHROMYCIN ETHYLSUCCINATE SUSP 200 MG/5 ML UDC PO SCH ×2 (12:21→18:18)
[2020-09-23] MEDS ORDERED: MAG SULF 2000 MG/WATER PREMIX 50 ML IV SCH (14:00)
[2020-09-23 14:05] LABS: HEMATOCRIT 28.8 % (36-52); HEMOGLOBIN 9.4 g/dL (12.0-18.0)
[2020-09-23] MEDS: SUPREP BOWEL PREP KIT 354 ML SOLN.RECON PO SCH ×2 (14:28→16:48)
[2020-09-23] MEDS ORDERED: POTASSIUM CHLORIDE 20% 40 MEQ/15 ML UDC GT SCH (16:05)
[2020-09-24] VITALS: BP 144/70
[2020-09-24] MEDS: ERYTHROMYCIN ETHYLSUCCINATE SUSP 200 MG/5 ML UDC PO SCH ×3 (00:07→12:49)
[2020-09-24] MEDS ORDERED: PANTOPRAZOLE 40 MG INJ VIAL ONE (01:09)
[2020-09-24] MEDS: PANTOPRAZOLE 80 MG in NACL 0.9% 100 ML IVP SCH (01:28)
[2020-09-24 04:00] VITALS: BP 133/82
[2020-09-24] MEDS: SODIUM FERRIC GLUCONATE 125 MG in NACL 0.9% 100 ML IV SCH ×2 (05:53→12:52)
[2020-09-24] MEDS: NACL 0.9% 1,000 ML IV SCH ×2 (06:01→09:32)
[2020-09-24 08:00] VITALS: BP 148/72
[2020-09-24] MEDS: SUCRALFATE 1 GM TAB PO SCH ×3 (08:21→17:28)
[2020-09-24] MEDS: SENNA 8.6 MG TAB PO SCH ×2 (08:21→12:46)
[2020-09-24] MEDS: LACTULOSE 20 GM/30 ML UDC PO SCH ×2 (08:26→12:47)
[2020-09-24] MEDS ORDERED: MAGNESIUM CITRATE 300 ML BTL PO SCH (09:30)
[2020-09-24 12:00] VITALS: BP 106/50
[2020-09-24] MEDS ORDERED: MIDAZOLAM 5 MG/5 ML VIAL ONE (13:28)
[2020-09-24] MEDS ORDERED: diphenhydrAMINE 50 MG/ML VIAL ONE (13:28)
[2020-09-24] MEDS ORDERED: fentaNYL citrate 0.05 MG/ML VIAL ONE (13:28)
[2020-09-24] MEDS ORDERED: MIDAZOLAM 2 MG/2 ML VIAL IVP ONE (14:35)
[2020-09-24] MEDS ORDERED: fentaNYL citrate 0.05 MG/ML VIAL IVP ONE (14:35)
[2020-09-24] MEDS ORDERED: LACTULOSE 20 GM/30 ML UDC PO SCH (15:30)
[2020-09-24 15:45] LABS: HEMATOCRIT 30.3 % (36-52); HEMOGLOBIN 9.8 g/dL (12.0-18.0)
[2020-09-24 16:00] VITALS: BP 136/78
[2020-09-24] MEDS: MULTIVITAMIN-12 10 ML, THIAMINE 100 MG, FOLIC ACID 1 MG, MAGNESIUM SULFATE 50% 2,000 MG... IV SCH ×5 (16:28)
[2020-09-24] MEDS ORDERED: FERROUS SULFATE 325 MG TABEC PO SCH (17:00)
[2020-09-24] MEDS ORDERED: SUCR1TAB56 PO (17:01)
[2020-09-24 17:08] VITALS: BP 136/78
[2020-09-25] MEDS ORDERED: LACTULOSE 20 GM/30 ML UDC PO SCH (09:00)
== END 2020-09-24 19:20 | disposition home or self-care (01) | DRG 241 ==
LOC: MED 11:00 → MTU 13:25 → MIC 17:34 → MTU 09-23 11:25
PROVIDERS: ADMIT Hospitalist; ATTEND Hospitalist
PROC: 30233N1 Transfusion of Nonautologous Red Blood Cells into Peripheral Vein, Percutaneous Approach (ICD-10-PCS; 2020-09-22)
PROC: 0W3P8ZZ Control Bleeding in Gastrointestinal Tract, Via Natural or Artificial Opening Endoscopic (ICD-10-PCS; principal; 2020-09-22 15:00)
PROC: 0DB68ZX Excision of Stomach, Via Natural or Artificial Opening Endoscopic, Diagnostic (ICD-10-PCS; 2020-09-22 15:00)
PROC: 0DBG8ZZ Excision of Left Large Intestine, Via Natural or Artificial Opening Endoscopic (ICD-10-PCS; 2020-09-24)
PROC: 0DBF8ZX Excision of Right Large Intestine, Via Natural or Artificial Opening Endoscopic, Diagnostic (ICD-10-PCS; 2020-09-24)
DX: K26.4 Chronic or unspecified duodenal ulcer with hemorrhage (principal); N17.9 Acute kidney failure, unspecified; E44.0 Moderate protein-calorie malnutrition; E87.1 Hypo-osmolality and hyponatremia; S09.90XA Unspecified injury of head, initial encounter; D50.9 Iron deficiency anemia, unspecified; F10.10 Alcohol abuse, uncomplicated; K57.32 Diverticulitis of large intestine without perforation or abscess without bleeding; F17.210 Nicotine dependence, cigarettes, uncomplicated; E87.6 Hypokalemia; K44.9 Diaphragmatic hernia without obstruction or gangrene; K64.8 Other hemorrhoids; Z20.822 Contact with and (suspected) exposure to COVID-19; W18.30XA Fall on same level, unspecified, initial encounter; Y90.9 Presence of alcohol in blood, level not specified; K29.70 Gastritis, unspecified, without bleeding; K63.5 Polyp of colon; Z68.21 Body mass index [BMI] 21.0-21.9, adult; Z79.899 Other long term (current) drug therapy; Y93.89 Activity, other specified; Y92.89 Other specified places as the place of occurrence of the external cause; Y99.8 Other external cause status
CPT/HCPCS: 36415; 36430; 70450; 71045; 76705; 80053; 81001; 83540; 83690; 83735; 84484; 85018; 85025; 86677; 86886; 86900; 86901; 86920; 87081; 87086; 93005; 96374; 96375; 99285; A9153; C9113; J0171; J1200; J1610; J2250; J2916; J3010; J3411; J3475; J3480; J3490; J7030; P9016

== ENCOUNTER 2021-01-25 12:28 | Emergency (ER) | payer OTHER, SELFPAY ==
[~2021-01-25] VITALS: Ht 162.6 cm; Wt 51.7 kg
[~2021-01-25 12:28] MED LIST changes: +SUCR1TAB56 PO
[2021-01-25 12:41] VITALS: BP 141/88
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
[2021-01-25] MEDS ORDERED: NAPR-54 PO (14:45)
[2021-01-25 15:05] VITALS: BP 141/88
--- NOTE | 2021-01-25 15:06 | NUR ---
Patient discharged with v/s stable. Written and verbal after care instructions given and explained. Patient alert, oriented and verbalized understanding of instructions. Ambulatory with steady gait WITH SPOUSE. All questions addressed prior to discharge. ID band removed. Patient advised to follow up with PMD. Rx of NAPROXEN given. Patient educated on indication of medication including possible reaction and side effects. Opportunity to ask questions provided and answered.
== END 2021-01-25 15:06 | disposition home or self-care (01) ==
LOC: MED 12:28
DX: S09.90XA Unspecified injury of head, initial encounter (principal); V87.7XXA Person injured in collision between other specified motor vehicles (traffic), initial encounter; Y93.89 Activity, other specified; Y92.89 Other specified places as the place of occurrence of the external cause; Y99.8 Other external cause status
CPT/HCPCS: 70450; 71045; 72125; 99285